=== PATIENT | male | born 1975 | race Caucasian/White ===

== ENCOUNTER → 2019-04-19 | Outpatient (CLI) | payer BC ==
[2019-04-19 16:51] LABS: BASO % 0.6 % (0.0-1.0); EOS # 0.2 10*3/uL (0.0-0.4); HEMOGLOBIN 15.5 g/dl (14.0-18.0); LYMPH # 1.9 10*3/uL (1.3-4.4); LYMPH % 37.4 % (27.0-41.0); MEAN CELL VOLUME 87.1 fl (80.0-94.0); MEAN CORPUSCULAR HGB 29.4 pg (27.0-31.0); MEAN CORPUSCULAR HGB CONC 33.7 g/dl (33.0-37.0); MONO # 0.4 10*3/uL (0.1-1.0); MONO % 8.2 % (3.0-9.0); NEUT # 2.5 10*3/uL (2.3-7.9); NEUT % 49.6 % (47.0-73.0); PLATELET COUNT AUTOMATED 169 10*3/uL (130-400); RED BLOOD COUNT 5.28 10*6/uL (4.50-5.90); RED CELL DISTRI WIDTH 12.2 % (0-14.5)
[2019-04-19 17:07] LABS: ALBUMIN 4.6 gm/dl (3.1-4.5); ALKALINE PHOSPHATASE 61 U/L (45-117); BUN 12 mg/dl (7-24); CHLORIDE 106 mmol/L (98-107); CREATININE 1.29 mg/dL (0.70-1.30); POTASSIUM 4.7 mmol/L (3.5-5.1); SGOT/AST 15 IU/L (3-35); SGPT/ALT 33 U/L (12-78); SODIUM 141 mmol/L (136-145); TOTAL PROTEIN 7.8 gm/dL (6.4-8.2)
== END | disposition home or self-care (01) ==
LOC: LAB 16:32
PROVIDERS: Nurse Practitioner Family
DX: L40.9 Psoriasis, unspecified (principal); T50.905A Adverse effect of unspecified drugs, medicaments and biological substances, initial encounter; Y92.89 Other specified places as the place of occurrence of the external cause

== ENCOUNTER → 2020-09-11 | Outpatient (CLI) | payer BC ==
[2020-09-11 10:40] LABS: HEMATOCRIT 46.5 % (42.0-52.0); MEAN CELL VOLUME 86.1 fl (80.0-94.0); MEAN CORPUSCULAR HGB 29.3 pg (27.0-31.0); MEAN PLATELET VOLUME 10.9 fl (9.6-12.3); RED BLOOD COUNT 5.4 10*6/uL (4.50-5.90); RED CELL DISTRI WIDTH 12.6 % (0-14.5); WHITE BLOOD COUNT 6.1 10*3/uL (4.8-10.8)
[2020-09-11 11:12] LABS: ALBUMIN 3.9 gm/dl (3.1-4.5); BUN 18 mg/dl (7-24); CHLORIDE 105 mmol/L (98-107); CHOLESTEROL 215 mg/dL (<200); POTASSIUM 4.4 mmol/L (3.5-5.1); SODIUM 137 mmol/L (136-145)
[2020-09-11 11:17] LABS: ALKALINE PHOSPHATASE 73 U/L (45-117); CREATININE 1.01 mg/dL (0.70-1.30); LDL CHOLESTEROL 133 mg/dL (9-159); SGOT/AST 16 IU/L (3-35); SGPT/ALT 29 U/L (12-78); TOTAL PROTEIN 7.7 gm/dL (6.4-8.2); TRIGLYCERIDES 213 mg/dl (<150)
== END | disposition home or self-care (01) ==
LOC: LAB 10:16
PROVIDERS: ATTEND Family Medicine
DX: I10 Essential (primary) hypertension (principal); E78.00 Pure hypercholesterolemia, unspecified

== ENCOUNTER → 2024-08-30 | Outpatient (CLI) | payer BC | END | disposition home or self-care (01) | LOC: RAD 10:53 | PROVIDERS: ATTEND Family Medicine | DX: M47.814 Spondylosis without myelopathy or radiculopathy, thoracic region (principal); M48.04 Spinal stenosis, thoracic region; M43.8X4 Other specified deforming dorsopathies, thoracic region; M54.50 Low back pain, unspecified ==

== ENCOUNTER → 2024-09-07 | Outpatient (CLI) | payer BC | END | disposition home or self-care (01) | LOC: MRI 13:54 | PROVIDERS: ATTEND Family Medicine | DX: M51.24 Other intervertebral disc displacement, thoracic region (principal); M47.814 Spondylosis without myelopathy or radiculopathy, thoracic region; M54.9 Dorsalgia, unspecified; M19.90 Unspecified osteoarthritis, unspecified site; Z87.828 Personal history of other (healed) physical injury and trauma ==